=== PATIENT | male | born 1940 | race Two or more races ===

== ENCOUNTER 2023-03-28 06:11 | Day surgery (SDC) | payer OTHER ==
[2023-03-21 16:01] LABS: BASOPHILS # (AUTO) 0.1 X10'3 (0-0.2); BASOPHILS % (AUTO) 1.2 % (0-1); EOSINOPHILS # (AUTO) 0.4 X10'3 (0-0.9); EOSINOPHILS % (AUTO) 4.9 % (0-6); LYMPHOCYTES % (AUTO) 24.5 % (21-51); MEAN CORPUSCULAR HEMOGLOBIN 30.8 PG (27.0-31.0); MEAN CORPUSCULAR HGB CONC 33.4 g/dL (33.0-36.5); MEAN CORPUSCULAR VOLUME 92.2 FL (78-98); MEAN PLATELET VOLUME 7.7 FL (7.4-10.4); MONOCYTES # (AUTO) 0.7 X10'3 (0-0.9); MONOCYTES % (AUTO) 8.2 % (2-12); NEUTROPHILS # (AUTO) 4.9 X10'3 (1.8-7.7); NEUTROPHILS % (AUTO) 61.2 % (42-75); PRE OP HEMATOCRIT 42.2 % (42.0-52.0); PRE OP HEMOGLOBIN 14.1 g/dL (14.0-17.9); PRE OP PLATELET COUNT 239 X10'3 (140-440); PRE OP PROTIME 10.6 SECONDS (9.0-12.0); RED BLOOD COUNT 4.58 X10'6 (4.70-6.10)
[2023-03-21 16:05] LABS: ALBUMIN 3.8 G/DL (3.4-5.0); ALBUMIN/GLOBULIN RATIO 1.2 (1.1-1.5); ALKALINE PHOSPHATASE 80 IU/L (46-116); BLOOD UREA NITROGEN 34 MG/DL (7-18); BUN/CREATININE RATIO 24.5 (10.0-20.0); CALCIUM 9.1 MG/DL (8.5-10.1); CHLORIDE 109 MMOL/L (99-107); CREATININE 1.39 MG/DL (0.60-1.10); PRE OP ALT 21 U/L (30-65); PRE OP ANION GAP 6 (8-16); PRE OP AST 16 U/L (10-37); PRE OP BILIRUB, TOTAL 0.4 MG/DL (0.0-1.0); PRE OP GLUCOSE 93 MG/DL (70-104); PRE OP POTASSIUM 4.5 MMOL/L (3.4-5.1); PRE OP SODIUM 143 MMOL/L (135-145); TOTAL CARBON DIOXIDE 27.8 MMOL/L (24-32); eGFR 49 ML/MIN
[2023-03-28] VITALS (17 sets, daily range): BP systolic 108–125; BP diastolic 59–74
[~2023-03-28] VITALS: Ht 170.2 cm; Wt 71.9 kg
[~2023-03-28 06:11] MED LIST: ASPI-1071 PO; BUPR100T15 PO; FLO0.4C PO; cefazolin 2gm/D5W 100mL 100 ML IV ONE; famotidine 20mg tablet PO ONE; normal saline 1000ml 500 ML IV SCH
[2023-03-28] MEDS ORDERED: bacitracin 15gm ointment TP ONE (06:50)
[2023-03-28] MEDS ORDERED: LIDOcaine 1% W/epiNEPHrine 1:100,000 20ml vial ONE (06:50)
[2023-03-28] MEDS ORDERED: BUPIVAcaine 0.5% inj/PF 30 ML ONE (06:50)
--- NOTE | 2023-03-28 08:00 | NUR ---
PT REPORTED HE HAD CONSUMED A YOGURT AND PROTEIN DRINK AT 4;00 THIS AM, CALLED DR SAGE AND DR CANADA AND INFORMED. 10 MG IV REGLAN GIVEN W/20 MG PO PEPCID. Addendum: 03/28/23 at 1231 by Melanie Alexandra RN Amended: Links added.
[2023-03-28] MEDS ORDERED: metoclopramide 5 mg/ml inj IV ONE (08:05)
[2023-03-28] MEDS ORDERED: meperidine/PF 25mg/ml syringe IV PRN (09:05)
[2023-03-28] MEDS ORDERED: labetalol 20mg/4ml (5mg/ml) syringe IV PRN (09:05)
[2023-03-28] MEDS ORDERED: ondansetron/PF 4mg/2ml inj IV PRN (09:05)
[2023-03-28] MEDS ORDERED: hydrALAZINE 20mg/ml inj. IV PRN (09:05)
[2023-03-28] MEDS ORDERED: acetaminophen 1,000mg/100ml IV 100 ML IV PRN (09:05)
[2023-03-28] MEDS ORDERED: HYDROmorphone/PF 0.2 MG/ML SYRINGE IV PRN (09:05)
[2023-03-28] MEDS ORDERED: ringers solution, lacted 1,000 ML IV SCH (09:05)
[2023-03-28] MEDS ORDERED: morphine 2 MG/ML inj. syringe IV PRN (09:05)
[2023-03-28] MEDS ORDERED: morphine 4 MG/ML inj SYRINge IV PRN (09:05)
[2023-03-28] MEDS ORDERED: proCHLORperazine 10 MG/2 ml inj IV PRN (09:05)
[2023-03-28] MEDS ORDERED: sevoflurane 250ml liquid IH ONE (09:16)
[2023-03-28] MEDS ORDERED: fentaNYL/PF 50MCG/1 ML 2ML syringe ONE (09:31)
[2023-03-28] MEDS ORDERED: LIDOcaine 2% (20mg/ml) 5ml vial ONE (09:55)
[2023-03-28] MEDS ORDERED: ondansetron/PF 4mg/2ml inj ONE (09:55)
[2023-03-28] MEDS ORDERED: dexamethasone sod phosphate 4mg/ml inj. ONE (09:55)
[2023-03-28] MEDS ORDERED: propofol inj 20 ML IV ONE (09:55)
[2023-03-28] MEDS ORDERED: rocuronium 10mg/ml inj IV ONE (09:55)
--- NOTE | 2023-03-28 10:39 | NUR ---
Received from OR via , accompanied by Anesthesiologist DR SAGE and report given by Anesthesiolgist. VSS. PATIENT RESTING BUT RESPONSIVE. IV IN THE RFA 20G INTACT. DRESSING-SUTURES,STERI STRIP, 4X4 WITH TAPE ON LOWER LEFT ABD. ANOTHER SAMLL DRESSING BELOW THAT WITH 4X4 AND TAPE, DR REMOVED A TAG. LR RUNNING AT 100ML/HR Addendum: 03/28/23 at 1051 by Nadia Perez RN Amended: Links added.
[2023-03-28] MEDS: HYDROmorphone/PF 0.2 MG/ML SYRINGE IV PRN ×2 (11:56→12:02)
--- NOTE | 2023-03-28 12:20 | NUR ---
BLADDER SCANNED PATIENT 120 RESIDUAL.
--- NOTE | 2023-03-28 12:45 | NUR ---
RECEIVED PT FROM PACU, PT STATES HE IS COMFORTABLE, DENIES PAIN. DRSG'S REMAIN CDI. PT DROWSY, RESTING.
--- NOTE | 2023-03-28 12:45 | NUR ---
CALLED REPORT TO TIFFANIE AND SENT PATIENT BACK TO [facility] TO TRY TO URINATE. VSS STABLE AND PATIENT IS ROOM AIR
--- NOTE | 2023-03-28 14:45 | NUR ---
BLADDER SCANNED PT FOR 202 ML URINE, PT UP AND STABLE W/AMBULATION TO BATHROOM FOR VOID, RESCANNED PT FOR 12 ML IN BLADDER. PT NOTED TO HAVE SILVER DOLLAR SIZED BLOODY DRAINAGE ON ISLAND DRS, AREA SOFT, NO S/S OF HEMATOMA NOTED, CALLED DR CANADA UPDATED REGARDING VOID AND RESIDUAL IN BLADDER AND BLOOD ON DRSG, OKAY TO D/C PT TO HOME. Addendum: 03/28/23 at 1448 by Melanie Alexandra RN Amended: Links added.
--- NOTE | 2023-03-28 15:29 | NUR ---
PT TOLERATED ORAL FOOD (TURKEY SANDWICH) AND RINA APACHE W/O ANY PROBLEM. PT REMAINS STABLE W/AMBULATION, RECHECK OF GROIN DRSG REMAINS THE SAME AMT OF DRAINAGE AND NO SWELLING. D/C INSTRUCTIONS GIVEN AND GONE OVER W/PT AND PTS WHO VERBALIZED UNDERSTANDING. PT DC/D TO HOME VIA W/C TO PRIVATE VEHICLE W/O INCIDENT. Addendum: 03/28/23 at 1550 by Melanie Alexandra RN Amended: Links added.
== END 2023-03-28 15:29 | disposition home or self-care (01) ==
LOC: PAS 06:11
PROVIDERS: ATTEND Surgery
DX: K40.90 Unilateral inguinal hernia, without obstruction or gangrene, not specified as recurrent (principal); D17.6 Benign lipomatous neoplasm of spermatic cord; L91.8 Other hypertrophic disorders of the skin; F32.A Depression, unspecified; F43.10 Post-traumatic stress disorder, unspecified; Z90.5 Acquired absence of kidney; Z85.528 Personal history of other malignant neoplasm of kidney; Z79.899 Other long term (current) drug therapy; Z79.82 Long term (current) use of aspirin; Z86.73 Personal history of transient ischemic attack (TIA), and cerebral infarction without residual deficits; Z87.891 Personal history of nicotine dependence; Z98.890 Other specified postprocedural states; Z79.01 Long term (current) use of anticoagulants; R20.8 Other disturbances of skin sensation
CPT/HCPCS: 11200; 36415; 49505; 80053; 82948; 85025; 85610; 85730; C1781; J0131; J0690; J1100; J1170; J2405; J2704; J2765; J3010; J3490; J7030; J7120; S0020; Z7506; Z7508; Z7512; A4215; A4618; A6449; A7000

== ENCOUNTER 2023-03-31 19:28 | Emergency (ER) | payer OTHER ==
[~2023-03-31] VITALS: Ht 167.6 cm; Wt 33.1 kg
[~2023-03-31 19:28] MED LIST changes: -cefazolin 2gm/D5W 100mL 100 ML IV ONE; -famotidine 20mg tablet PO ONE; -normal saline 1000ml 500 ML IV SCH
--- NOTE | 2023-03-31 20:46 | NUR ---
VASCULAR PAGED FOR PT
[2023-03-31 21:54] VITALS: BP 148/77
== END 2023-03-31 21:55 | disposition home or self-care (01) ==
LOC: ER 19:29
DX: R25.2 Cramp and spasm (principal); Z88.8 Allergy status to other drugs, medicaments and biological substances; Z79.899 Other long term (current) drug therapy; Z79.82 Long term (current) use of aspirin
CPT/HCPCS: 93971; 99284

== ENCOUNTER 2023-04-03 17:29 | Emergency (ER) | payer OTHER ==
[~2023-04-03] VITALS: Ht 170.2 cm; Wt 80.0 kg
[2023-04-03] MEDS ORDERED: morphine 4 MG/ML inj SYRINge IV ONE (20:05)
[2023-04-03] MEDS ORDERED: ondansetron/PF 4mg/2ml inj IV ONE (20:05)
[2023-04-03 20:25] VITALS: BP 132/79
[2023-04-03] MEDS ORDERED: CEFU500T66 PO (20:39)
[2023-04-03] MEDS ORDERED: HYDR-3965 PO (20:39)
[2023-04-03] MEDS ORDERED: FLO0.4C PO (20:39)
[2023-04-03 20:41] LABS: ALANINE AMINOTRANSFERASE 21 U/L (12-78); ALBUMIN/GLOBULIN RATIO 0.7 (1.1-1.5); ALKALINE PHOSPHATASE 61 IU/L (46-116); ANION GAP 9 (8-16); ASPARTATE AMINO TRANSFERASE 18 U/L (10-37); BILIRUBIN,TOTAL 0.6 MG/DL (0.1-1.0); BLOOD UREA NITROGEN 28 MG/DL (7-18); BUN/CREATININE RATIO 21.9 (10.0-20.0); CALCIUM 9.3 MG/DL (8.5-10.1); CHLORIDE 103 MMOL/L (99-107); CREATININE 1.28 MG/DL (0.60-1.10); GLUCOSE 107 MG/DL (70-104); POTASSIUM 4.3 MMOL/L (3.5-5.1); SODIUM 136 MMOL/L (135-145); TOTAL CARBON DIOXIDE 24.1 MMOL/L (24-32); TOTAL PROTEIN 7.1 G/DL (6.4-8.2); eGFR 54 ML/MIN
[2023-04-03] MEDS ORDERED: cefuroxime axetil 250mg tablet PO ONE (21:00)
[2023-04-03] MEDS ORDERED: normal saline 500ml IV soln 500 ML IV SCH (21:00)
[2023-04-03 21:03] LABS: BASOPHILS # (AUTO) 0.1 X10'3 (0-0.2); BASOPHILS % (AUTO) 0.9 % (0-1); EOSINOPHILS # (AUTO) 0.3 X10'3 (0-0.9); EOSINOPHILS % (AUTO) 2.5 % (0-6); HEMATOCRIT 36.5 % (42.0-52.0); HEMOGLOBIN 12.1 g/dl (14.0-17.9); LYMPHOCYTES # (AUTO) 1.5 X10'3 (1.1-4.8); MEAN CORPUSCULAR HEMOGLOBIN 30.2 PG (27.0-31.0); MEAN CORPUSCULAR VOLUME 91.3 FL (78-98); MEAN PLATELET VOLUME 7.7 FL (7.4-10.4); MONOCYTES # (AUTO) 1.1 X10'3 (0-0.9); MONOCYTES % (AUTO) 10.3 % (2-12); NEUTROPHILS # (AUTO) 7.7 X10'3 (1.8-7.7); NEUTROPHILS % (AUTO) 72.3 % (42-75); PLATELET COUNT 290 X10'3 (140-440); RED CELL DISTRIBUTION WIDTH 14.5 % (11.5-14.5); WHITE BLOOD COUNT 10.6 X10'3 (4.5-11.0)
--- NOTE | 2023-04-03 21:29 | NUR ---
IV DC'D PT BEING DISCHARGED DRESSING APPLIED
== END 2023-04-03 21:38 | disposition home or self-care (01) ==
LOC: ER 17:29
DX: N45.1 Epididymitis (principal); K40.30 Unilateral inguinal hernia, with obstruction, without gangrene, not specified as recurrent
CPT/HCPCS: 36415; 76870; 80053; 85025; 93976; 96365; 96375; 99285; J2270; J2405; J7040

== ENCOUNTER 2023-04-06 10:05 | Emergency (ER) | payer OTHER ==
[~2023-04-06] VITALS: Ht 170.2 cm; Wt 72.7 kg
[~2023-04-06 10:05] MED LIST changes: +CEFU500T66 PO; +HYDR-3965 PO
[2023-04-06 11:29] VITALS: BP 127/75
[2023-04-06 11:58] LABS: ALANINE AMINOTRANSFERASE 24 U/L (12-78); ALBUMIN/GLOBULIN RATIO 0.7 (1.1-1.5); ALKALINE PHOSPHATASE 63 IU/L (46-116); ANION GAP 7 (8-16); ASPARTATE AMINO TRANSFERASE 23 U/L (10-37); BASOPHILS % (AUTO) 0.5 % (0-1); BILIRUBIN,TOTAL 0.5 MG/DL (0.1-1.0); BLOOD UREA NITROGEN 31 MG/DL (7-18); BUN/CREATININE RATIO 23.3 (10.0-20.0); CALCIUM 9.2 MG/DL (8.5-10.1); CHLORIDE 104 MMOL/L (99-107); CREATININE 1.33 MG/DL (0.60-1.10); EOSINOPHILS # (AUTO) 0.3 X10'3 (0-0.9); EOSINOPHILS % (AUTO) 3.3 % (0-6); GLUCOSE 111 MG/DL (70-104); HEMATOCRIT 35.1 % (42.0-52.0); HEMOGLOBIN 11.8 g/dl (14.0-17.9); LYMPHOCYTES # (AUTO) 1.9 X10'3 (1.1-4.8); LYMPHOCYTES % (AUTO) 18.9 % (21-51); MEAN CORPUSCULAR HEMOGLOBIN 30.5 PG (27.0-31.0); MEAN CORPUSCULAR HGB CONC 33.5 g/dL (33.0-36.5); MEAN CORPUSCULAR VOLUME 90.9 FL (78-98); MEAN PLATELET VOLUME 6.7 FL (7.4-10.4); MONOCYTES # (AUTO) 0.8 X10'3 (0-0.9); MONOCYTES % (AUTO) 7.9 % (2-12); NEUTROPHILS # (AUTO) 7.1 X10'3 (1.8-7.7); NEUTROPHILS % (AUTO) 69.4 % (42-75); PLATELET COUNT 365 X10'3 (140-440); POTASSIUM 4.3 MMOL/L (3.5-5.1); RED BLOOD COUNT 3.86 X10'6 (4.70-6.10); SODIUM 136 MMOL/L (135-145); TOTAL CARBON DIOXIDE 24.6 MMOL/L (24-32); TOTAL PROTEIN 7.1 G/DL (6.4-8.2); WHITE BLOOD COUNT 10.2 X10'3 (4.5-11.0); eGFR 51 ML/MIN
[2023-04-06 12:10] LABS: APTT 34 SECONDS (22-32)
[2023-04-06 12:34] LABS: CLARITY,URINE CLEAR (Clear); COLOR,URINE YELLOW (Yellow); GLUCOSE, URINE NEGATIVE (Neg); KETONES,URINE NEGATIVE (Neg); LEUKOCYTE ESTERASE ,URINE NEGATIVE (Neg); NITRITES, URINE NEGATIVE (Neg); OCCULT BLOOD,URINE NEGATIVE (Neg); PH,URINE 5.5 (4.8-8.0); PROTEIN,URINE NEGATIVE (Neg); UROBILINOGEN,URINE 0.2 E.U/dL (0.2-1.0)
[2023-04-06 12:36] LABS: UA COLLECTION TYPE CLN CATCH MIDSTREAM
== END 2023-04-06 13:58 | disposition home or self-care (01) ==
LOC: ER 10:05
DX: K40.90 Unilateral inguinal hernia, without obstruction or gangrene, not specified as recurrent (principal); N50.812 Left testicular pain; Z79.899 Other long term (current) drug therapy; Z79.82 Long term (current) use of aspirin
CPT/HCPCS: 36415; 74176; 76870; 80053; 81003; 85025; 85610; 85730; 93976; 99284